=== PATIENT | female | born 1980 ===

== ENCOUNTER 2016-09-29 09:54 | Emergency (ER) | payer OTHER ==
[2016-09-29 10:04] VITALS: BMI 38.7
[2016-09-29 10:08] VITALS: BP 112/74; PULSE 80; RESP 18; TEMP 98.6; O2SAT 100
[2016-09-29] MEDS ORDERED: Lidocaine 5% Patch TD STA (10:37)
--- NOTE | 2016-09-29 10:37 | C.PDOC ---
History Of Present Illness VIA TRANS LOWER BACK PAIN X 1 WEEK. ONSET AFTER MOVING FURNITURE. LOCALIZED WORSE W STANDING UP. NO TRAUMA, ASSOC WEAK/ NUMB. DENIES HO CHRONIC LBP. LIMITED RELIEF W OTC TOPICAL PAIN MED, TYLENOL EXAM MILD DIST NONTOXIC BACK LIMITED FULL EXTENSION DUE TO PAIN. +BL PARAVERT LUMBAR SPASM W REPRODUC PAIN NEURO INTACT SKIN NEG Time Seen by Provider: 09/29/16 10:23 Chief Complaint (Nursing): Back Pain History Per: Patient History/Exam Limitations: language barrier Onset/Duration Of Symptoms: Days Current Symptoms Are (Timing): Still Present Quality Of Discomfort: "Pain" Previous Symptoms: None. denies: Chronic Pain Exacerbating Factor(s): Standing Recent travel outside of the [place]: No Past Medical History Reviewed: Historical Data, Nursing Documentation, Vital Signs Vital Signs: Last Vital Signs Temp 98.6 F 09/29/16 10:05 Pulse 80 09/29/16 10:05 Resp 18 09/29/16 10:05 BP 112/74 09/29/16 10:05 Pulse Ox 100 09/29/16 10:40 Family History: States: Unknown Family Hx - Social History Hx Alcohol Use: Yes Hx Substance Use: No - Immunization History Hx Tetanus Toxoid Vaccination: No Hx Influenza Vaccination: No Hx Pneumococcal Vaccination: No Review Of Systems Except As Marked, All Systems Reviewed And Found Negative. Constitutional: Negative for: Fever, Chills Gastrointestinal: Negative for: Nausea, Vomiting, Abdominal Pain Genitourinary: Negative for: Incontinence Musculoskeletal: Positive for: Back Pain. Negative for: Neck Pain Neurological: Negative for: Weakness, Numbness Physical Exam - Physical Exam Appears: Non-toxic, Other (MILD DISTRESS) Skin: Normal Color, Warm, Dry, No Ecchymosis Head: Atraumatic, Normacephalic Neck: Normal ROM, Supple Chest: Symmetrical Cardiovascular: Rhythm Regular, No Murmur Respiratory: Normal Breath Sounds, No Rales, No Rhonchi, No Wheezing Gastrointestinal/Abdominal: Soft, No Tenderness, No Guarding, No Rebound Back: No Vertebral Tenderness, Muscle Spasm, Other (LIMTIED FULL EXTENSION DUE TO PAIN. +BL PARAVERTEBRAL LUMBAR SPASM W REPRODUCIBLE PAIN ) Extremity: Normal ROM, Capillary Refill (< 2 SEC.) Neurological/Psych: Oriented x3, Normal Speech, Normal Cognition, Other (NEURO INTACT) ED Course And Treatment O2 Sat by Pulse Oximetry: 100 (RA) Pulse Ox Interpretation: Normal Progress - Re-Evaluation Re-evaluation Note: 09/29/16 10:37 TREATED WITH FLEXERIL, MOTRIN, LIDODERM PATCH. ON RE-EVAL, PT REPORTS IMPROVEMENT OF PAIN, AMBULATORY W/O DIFFICULTY. ADVISED FOLLOW UP WITH CLINIC AND TO TAKE MEDICATIONS DIRECTED. Disposition Counseled Patient/Family Regarding: Diagnosis, Need For Followup, Rx Given - Disposition Referrals: [facility] [Outside] [facility] [Outside] Disposition: HOME/ ROUTINE Disposition Time: 10:37 Condition: IMPROVED Additional Instructions: REMOVER PATCH 12 HORAS DESPUS DE LA APLICACIN INICIAL. Prescriptions: Cyclobenzaprine [Flexeril] 10 mg PO TID #15 tab Ibuprofen [Motrin] 600 mg PO Q6 #30 tab Lidocaine 5% [Lidoderm] 1 ea TD PRN PRN #10 patch PRN Reason: Pain, Moderate (4-7) Instructions: Back Pain (ED) Print Language: ARMENIAN - Clinical Impression Clinical Impression: Low back pain - Scribe Statement The provider has reviewed the documentation as recorded by the Scribjoey JANSEN All medical record entries made by the Scribe were at my direction and personally dictated by me. I have reviewed the chart and agree that the record accurately reflects my personal performance of the history, physical exam, medical decision making, and the department course for this patient. I have also personally directed, reviewed, and agree with the discharge instructions and disposition.
[2016-09-29] MEDS ORDERED: Lidocaine 5% Patch TD ONE (10:43)
== END 2016-09-29 10:50 | disposition home or self-care (01) ==
LOC: C.ER 09:54
DX: M54.5 Low back pain (principal)